=== PATIENT | female | born 1960 | race Caucasian/White ===

== ENCOUNTER 2020-09-01 05:51 | Day surgery (SDC) | payer BC ==
[2020-08-31 13:34] LABS: BASOPHILS % (AUTO) 0.5 % (0-1); EOSINOPHILS # (AUTO) 0.2 X10'3 (0-0.9); EOSINOPHILS % (AUTO) 3.4 % (0-6); HEMATOCRIT 39.9 % (35.0-45.0); HEMOGLOBIN 13.2 g/dl (12.0-16.0); LYMPHOCYTES # (AUTO) 2.3 X10'3 (1.1-4.8); LYMPHOCYTES % (AUTO) 32.8 % (21-51); MEAN CORPUSCULAR HEMOGLOBIN 31.4 PG (27.0-31.0); MEAN CORPUSCULAR HGB CONC 33.1 g/dL (33.0-36.5); MEAN CORPUSCULAR VOLUME 94.8 FL (78-98); MEAN PLATELET VOLUME 8.3 FL (7.4-10.4); MONOCYTES # (AUTO) 0.4 X10'3 (0-0.9); MONOCYTES % (AUTO) 6.1 % (2-12); NEUTROPHILS # (AUTO) 4.1 X10'3 (1.8-7.7); NEUTROPHILS % (AUTO) 57.2 % (42-75); PLATELET COUNT 275 X10'3 (140-440); RED CELL DISTRIBUTION WIDTH 13.2 % (11.5-14.5); WHITE BLOOD COUNT 7.1 X10'3 (4.5-11.0)
[2020-08-31 13:41] LABS: ALBUMIN 3.7 G/DL (3.4-5.0); ANION GAP 8 (8-16); BLOOD UREA NITROGEN 8 MG/DL (7-18); BUN/CREATININE RATIO 11.3 (6.6-38.0); CALCIUM 8.9 MG/DL (8.5-10.1); CHLORIDE 103 MMOL/L (99-107); CREATININE 0.71 MG/DL (0.40-0.90); GLUCOSE 99 MG/DL (70-104); POTASSIUM 3.8 MMOL/L (3.5-5.1); SODIUM 144 MMOL/L (135-145); eGFR 84 ML/MIN
[2020-08-31 13:44] LABS: PARTIAL THROMBOPLASTIN TIME 29 SECONDS (22-32)
[2020-09-01] VITALS (10 sets, daily range): BP systolic 130–169; BP diastolic 67–101
[~2020-09-01] VITALS: Ht 162.6 cm; Wt 90.3 kg
[2020-09-01] MEDS ORDERED: normal saline 1,000 ML IV SCH (06:10)
[2020-09-01] MEDS ORDERED: LIDOcaine/PRILOcaine 5gm cream TP ONE (06:10)
[2020-09-01] MEDS ORDERED: diphenhydrAMINE 25mg capsule PO PRN (06:10)
[2020-09-01] MEDS ORDERED: LEVO100T9 PO (06:14)
[2020-09-01] MEDS ORDERED: ATOR10TA70 PO (06:14)
[2020-09-01] MEDS ORDERED: GABA300C PO (06:14)
[2020-09-01] MEDS ORDERED: DULO60CA65 PO (06:14)
[2020-09-01] MEDS ORDERED: HYDR12.55 PO (06:14)
[2020-09-01] MEDS ORDERED: OXYB10TA30 PO (06:14)
[2020-09-01] MEDS ORDERED: APRE30TA2 PO (06:16)
[2020-09-01] MEDS ORDERED: ASPI-1265 PO (06:16)
[2020-09-01] MEDS ORDERED: fentaNYL/PF 50MCG/1 ML 2ML syringe ONE (07:19)
[2020-09-01] MEDS ORDERED: iohexol 350 MG/ML 50ML vial IV ONE (07:19)
[2020-09-01] MEDS ORDERED: midazolam 1 mg/ML 2ml injection ONE (07:19)
[2020-09-01] MEDS ORDERED: LIDOcaine 1% (10mg/ml)w/preservative injection 20ml MDV ONE (07:19)
[2020-09-01] MEDS ORDERED: heparin 1,000unit/ml 10ml vial 10 ML ONE (07:19)
[2020-09-01] MEDS ORDERED: nitroGLYCERIN-Tridil 50MG/D5W 250 ML IV ONE (07:19)
[2020-09-01] MEDS ORDERED: iohexol 350MG/ML 100ml bottle IV ONE (07:19)
[2020-09-01] MEDS ORDERED: verapamil 2.5 mg/ml inj IV ONE (07:36)
== END 2020-09-01 14:15 | disposition home or self-care (01) ==
LOC: SSTAY O 05:51
PROVIDERS: ATTEND Internal Medicine Cardiovascular Disease
DX: R94.39 Abnormal result of other cardiovascular function study (principal); I25.10 Atherosclerotic heart disease of native coronary artery without angina pectoris; I35.0 Nonrheumatic aortic (valve) stenosis; I10 Essential (primary) hypertension; E78.5 Hyperlipidemia, unspecified; E03.9 Hypothyroidism, unspecified; F32.9 Major depressive disorder, single episode, unspecified; Z79.01 Long term (current) use of anticoagulants; Z79.899 Other long term (current) drug therapy; Z79.82 Long term (current) use of aspirin; Z88.1 Allergy status to other antibiotic agents
CPT/HCPCS: 36415; 76937; 80048; 85025; 85610; 85730; 93005; 93458; 99152; 99153; C1760; C1769; C1894; J1644; J2001; J2250; J3010; J7030; Q0163; Q9967; A4620; A5120; J3490